=== PATIENT | male | born 1990 | race Caucasian/White ===

== ENCOUNTER 2022-02-04 23:32 | Emergency (ER) | payer OTHER ==
[~2022-02-04] VITALS: Ht 182.9 cm; Wt 61.1 kg
--- NOTE | 2022-02-04 23:43 | PHYS DOC ---
Adult General Chief Complaint Chief Complaint: ALCOHOL INTOXICATION HPI HPI Patient is a 31-year-old male who presents via EMS at the request of his family after being dropped off at home by some friends appearing intoxicated. Family stated that they were having trouble arousing him and got worried that he took some other drugs like cocaine. On arrival to the emergency department patient appears intoxicated but is able to arouse to stimulus, knows his name, and stated that he did drink some alcohol tonight and take some what he thought was Xanax. Denies any other recent travels, traumas, illnesses, fevers, chest pain, abdominal pain, nausea, vomiting, diarrhea Review of Systems Review of Systems Review of systems otherwise unremarkable except noted in HPI Physical Exam Physical Exam Constitutional: Well developed, well nourished, no acute distress, non-toxic appearance. [] HENT: Normocephalic, atraumatic, bilateral external ears normal, oropharynx moist, no oral exudates, nose normal. [] Eyes: PERRLA, EOMI, conjunctiva normal, no discharge. [] Neck: Normal range of motion, no tenderness, supple, no stridor. [] Cardiovascular:Heart rate regular rhythm, no murmur [] Lungs & Thorax: Bilateral breath sounds clear to auscultation [] Abdomen: Bowel sounds normal, soft, no tenderness, no masses, no pulsatile masses. [] Skin: Warm, dry, no erythema, no rash. [] Back: No tenderness, no CVA tenderness. [] Extremities: No tenderness, no cyanosis, no clubbing, ROM intact, no edema. [] Neurologic: Alert and oriented to name and situation, normal motor function, normal sensory function, no focal deficits noted. [] Psychologic: Appears intoxicated, smells of alcohol but is arousable to stimulation and and is alert to person and place. GCS of 14 EKG EKG [] Radiology/Procedures Radiology/Procedures [] Heart Score C/O Chest Pain: No Risk Factors: Risk Factors: DM, Current or recent (<one month) smoker, HTN, HLP, family history of CAD, obesity. Risk Scores: Risk Factors: DM, Current or recent (<one month) smoker, HTN, HLP, family history of CAD, obesity. Course & Med Decision Making Course & Med Decision Making Patient is a 31-year-old male who presents via EMS apparently intoxicated on alcohol per patient and may be Xanax Vital signs not concerning. Physical exam noted above. POC glucose 84. Placed on the monitor with IV access established and IV fluid given Patient allowed to sleep in the emergency department for some time. Upon awakening patient alert and oriented no acute distress. Able to take p.o. fluids without issue. Patient states he felt safe to go home and brother came to pick him up. Advised to follow-up as soon as he can with primary care physician. Discussed appropriate drinking and advised not to use any medications not given by prescription due to health risks Gave return precautions to the ED. Patient grateful, verbalized understanding and agreed with plan of discharge. [] Dragon Disclaimer Dragon Disclaimer This electronic medical record was generated, in whole or in part, using a voice recognition dictation system. Departure Departure: Impression: Primary Impression: Alcohol intoxication Disposition: HOME / SELF CARE / HOMELESS Condition: STABLE Referrals: ANANYA ROCHA MD Patient Instructions: Alcohol Intoxication Additional Instructions: Thank you for coming into the emergency department tonight and allowing us to take care of you. Please read the attached information carefully go over things we discussed. Please be careful when drinking alcohol as this has significant health risk and cause sickness, disability and in the worst case scenario. Please do not take any medications or substances not prescribed to you by a physician. Please follow-up with your primary care physician as soon as you can update on your ED visit and set up a follow-up appointment. Please come back with new or concerning symptoms as discussed. TRACI MONROE MD Feb 04, 2022 23:43
[2022-02-04] MEDS ORDERED: IV RINGERS SOLUTION,LACTATED 1,000 ML IV ONE (23:45)
[2022-02-05 01:13] VITALS: BP 103/52
== END 2022-02-05 03:01 | disposition home or self-care (01) ==
LOC: ER 23:32
DX: F10.129 Alcohol abuse with intoxication, unspecified (principal); Y90.9 Presence of alcohol in blood, level not specified
CPT/HCPCS: 82947; 96360; 99283; J7120